=== PATIENT | female | born 1990 | race Caucasian/White ===

== ENCOUNTER 2016-02-17 19:12 | Emergency (ER) | payer OTHER ==
[2016-02-17 19:49] LABS: BASO% 0.2 % (0.0-0.8); EOS# 0.08 X1000 (0.0-0.7); EOS% 0.6 % (0.0-10.0); HEMATOCRIT 32.6 % (37.0-47.0); HEMOGLOBIN 11.3 g/dL (12.0-16.0); IMM GRAN# 0.53 X1000 (0.0-0.04); LYMPH# 1.41 X1000 (1.2-3.4); LYMPH% 10.7 % (20.5-51.1); MANUAL DIFF NEEDED? NO; MCH 31.6 PG (27-31); MCHC 34.7 g/dL (33-37); MCV 91.1 FL (81-99); MONO# 0.59 X1000 (0.11-0.59); MONO% 4.5 % (1.7-9.3); MPV 9.7 FL (7.4-10.4); PLT 251 X1000 (130-400); RBC 3.58 XMIL (4.2-5.4)
[2016-02-17 20:03] LABS: AGAP 14; ALBUMIN 3.6 g/dL (3.5-5.0); ALKALINE PHOSPHATASE 89 U/L (32-104); AMYLASE 71 U/L (20-200); BUN 5 mg/dL (8-22); CALCIUM 8.9 mg/dL (8.8-10.2); CHLORIDE 100 mmol/L (98-107); COSMO 272; GOT 17 U/L (10-30); GPT 15 U/L (10-36); LIPASE 25 U/L (13-60); SODIUM 137 mmol/L (136-145); TCO2 23 mmol/L (25-35); TOTAL PROTEIN 6.8 g/dL (6.3-8.3)
[2016-02-17] MEDS ORDERED: NS 1,000 ML IV ONE (20:52)
[2016-02-17 20:53] LABS: URINE CULTURE NEEDED? NO; URINE MICRO REVIEW NEEDED? NO; URINE SOURCE CLEAN CATCH
[2016-02-17 21:04] LABS: UR EPITHELIAL CELLS <10 /HPF (<10); URINE BACTERIA 1+ /HPF; URINE RBC <10 /HPF (<10); URINE WBC <10 /HPF (<10)
[2016-02-17 21:06] LABS: BILIRUBIN URINE NEGATIVE (NEGATIVE); BLOOD URINE NEGATIVE (NEGATIVE); COLOR YELLOW; GLUCOSE URINE NEGATIVE (NEGATIVE); LEUKOCYTES URINE NEGATIVE (NEGATIVE); NITRITE URINE NEGATIVE (NEGATIVE); PH URINE 6.5; PROTEIN URINE TRACE mg/dL (NEGATIVE); SP GRAVITY URINE 1.023; TURBIDITY URINE CLEAR (CLEAR); UROBILINOGEN URINE NORMAL (NORMAL)
[2016-02-17] MEDS ORDERED: KLOR-CON PO ONE (22:53)
--- NOTE | 2016-02-17 23:01 | PROVIDER DOCUMENTATION ---
HPI-Female /OB/Breast - General Chief Complaint: Abdominal Pain Stated Complaint: ABD PAIN X 3 DAYS, BACK PAIN, N/D Time Seen by Provider: 02/17/16 20:40 Source: reports: patient Allergies/Adverse Reactions: Patient Allergies Allergy/AdvReac Type Severity Reaction Status Date / Time No Known Allergies Allergy Verified 02/17/16 19:27 Home Medications: Pnv Comb.no58/Iron Bisgly/FA [ Capsule] 1 cap PO DAILY 10/16/15 - History of Present Illness-Female /OB Nature of Presenting Problem: This pt, who is approximately 28 weeks , presents today complaining of intermittent abdominal pain from an umbilical hernia and bilateral lower back pains X 3 days. She denies any n/v, fever, chills, dysuria or vaginal discharge/bleeding. No other issues or complaints. Does patient report she is ?: Yes Location of complaint: reports: periumbilical, generalized flank Quality of Pain: reports: aching Severity in ED: reports: mild Onset/Duration: reports: 3 days ago Timing: reports: intermittent Vaginal Symptoms: reports: no symptoms Vaginal Bleeding Amount: None Urinary Symptoms: reports: low back pain Related Symptoms: reports: abdominal pain (umbilical) Sexual intercourse history: reports: Less Than 2 Months Ago, Single Partner Contraception: reports: none Similar Symptoms Previously?: Yes Recently seen or treated by another doctor?: Yes Review of Systems - Adult - REVIEW OF SYSTEMS - ADULT Constitutional: reports: no symptoms reported. denies: chills, fever Eyes: reports: no symptoms reported. denies: discharge, dry eyes Ears, Nose, Mouth & Throat: reports: no symptoms reported. denies: ear discharge, ear pain Cardiovascular: reports: no symptoms reported. denies: chest pain, edema Respiratory: reports: no symptoms reported. denies: chronic cough, cough Gastrointestinal: reports: see HPI, abdominal pain. denies: frequent heartburn , nausea Genitourinary: reports: see HPI, flank pain. denies: dysuria, discharge Musculoskeletal: reports: back pain. denies: bone pain, frequent leg cramps, joint swelling Integumentary: reports: no symptoms reported. denies: hives, hair loss Neurological: reports: no symptoms reported. denies: ataxia, dizziness/vertigo Psychiatric: reports: no symptoms reported. denies: anxiety, anti-depressant use Endocrine: reports: no symptoms reported Hematologic/Lymphatic: reports: no symptoms reported Allergic/Immunologic: reports: no symptoms reported All Other Systems: Reviewed and Negative Past History - Adult - PAST MEDICAL HISTORY-ADULT Review of Records: reports: Old Records Reviewed, Nursing Assessment Review, Medications Reviewed, Social history reviewed & non-contributory. Major Childhood Illnesses: reports: denies history Cardiovascular: reports: denies history Respiratory: reports: denies history Gastrointestinal: reports: denies history Obstetrical/Gynecological: reports: denies history Genitourinary: reports: denies history Musculoskeletal: reports: denies history Neurological: reports: denies history Endocrine/Immune: reports: denies history Other Conditions: reports: denies history Physical Exam-General - PHYSICAL EXAM-ADULT Initial Vital Signs Reviewed: Yes - CONSTITUTIONAL General Appearance: appears well, alert, no apparent distress. negative: lethargic, slow to respond - EYES Eyes: PERRL/EOMI, pink conjunctivae - HEAD, EARS, NOSE, MOUTH & THROAT HENMT: normocephalic/atraumatic, moist mucous membranes, normal ENT inspection - NECK Neck: non-tender, full range of motion, normal inspection - RESPIRATORY Respiratory: chest non-tender, lungs clear, normal breath sounds, no pleuratic chest pain, no respiratory distress, no accessory muscle use. negative: respiratory distress, decreased breath sounds, accessory muscle use - CARDIOVASCULAR Cardiovascular: normal peripheral pulses, regular rate, rhythm, no edema. negative: bradycardia, tachycardia - GASTROINTESTINAL (ABDOMEN) Abdominal Exam: normal bowel sounds, non tender, soft, no organomegaly, no pulsatile mass. negative: abdominal bruit, abnormal bowel sounds, distended, guarding, rigid, rebound, tenderness, hernia, mass - LYMPHATIC Lymphatic: no adenopathy - MUSCULOSKELETAL Back Exam: normal inspection, no CVA tenderness, no vertebral tenderness. negative: CVA tenderness Extremity: normal range of motion, non-tender, normal gait - SKIN Integumentary: normal color, normal turgor, warm/dry - NEUROLOGIC Neurologic: grossly normal, no motor/sensory deficits. negative: facial droop, focal weakness, motor weakness, sensory deficit - PSYCHIATRIC Psych/Mental Status: normal mood/affect, normal thought content, normal thought process, oriented x 3 Progress - PLAN OF CARE/RESULTS Progress/Plan/Lab Results: Laboratory Tests 0102/17/16 02/17/16 19:22 19:22 20:00 WBC 13.19 H RBC 3.58 L Hgb 11.3 L Hct 32.6 L MCV 91.1 MCH 31.6 H MCHC 34.7 RDW Std Deviation 13.9 Plt Count 251 MPV 9.7 Immature Gran % (Auto) 4.0 H Neut % (Auto) 80.0 H Lymph % (Auto) 10.7 L [facility] % (Auto) 4.5 Eos % (Auto) 0.6 Baso % (Auto) 0.2 Immature Gran # (Auto) 0.53 H Neut # (Auto) 10.55 H Lymph # (Auto) 1.41 [facility] # (Auto) 0.59 Eos # (Auto) 0.08 Baso # (Auto) 0.03 Sodium 137 Potassium 3.0 L Chloride 100 Carbon Dioxide 23 L Anion Gap 14 BUN 5 L Creatinine 0.5 Estimated GFR/1.73 m2 > 60 BUN/Creatinine Ratio 10 Glucose 119 H Calculated Osmolality 272 Calcium 8.9 Total Bilirubin 0.30 AST 17 ALT 15 Alkaline Phosphatase 89 Total Protein 6.8 Albumin 3.6 Globulin 3.2 Albumin/Globulin Ratio 1.1 Amylase 71 Lipase 25 Urine Source CLEAN CATCH Urine Color YELLOW Urine Turbidity CLEAR Urine pH 6.5 Ur Specific [place] 1.023 Urine Protein TRACE A Ur Glucose (Stick) NEGATIVE Ur Ketones (Stick) 80 A Urine Blood NEGATIVE Urine Nitrite NEGATIVE Urine Bilirubin NEGATIVE Urobilinogen Dipstick NORMAL Urine Leukocytes NEGATIVE Urine WBC (Auto) <10 Urine RBC (Auto) <10 U Epithel Cells (Auto) <10 Urine Bacteria (Auto) 1+ Orders Category Date Time Status ED: Urine Bedside ORDERED Care 02/17/16 19:19 Inactive Saline Loc NOW Care 02/17/16 19:19 Active US ABDOMEN-COMPLETE [US] Stat Exams 02/17/16 20:52 Taken US OBS COMPLETE > 14 WKS [US] Stat Exams 02/17/16 20:52 Taken AMYLASE [CHEM] Stat Lab 02/17/16 19:22 Completed CBC WITH ELECTRONIC DIFF [HEME] Stat Lab 02/17/16 19:22 Completed COMPREHENSIVE METABOLIC PANEL [CHEM] Stat Lab 02/17/16 19:22 Completed LIPASE [CHEM] Stat Lab 02/17/16 19:22 Completed URINALYSIS W/POSS RFLX CULT [URINALYSIS] Stat Lab 02/17/16 20:00 Completed 0.9% Sodium Chloride Inj [Ns] 1,000 ml Med 02/17/16 20:52 Discontinued IV 999 mls/hr Potassium Chloride E.r. [Klor-Con] Med 02/17/16 22:53 Discontinued 20 meq PO NOW ONE Vital Signs Temp Pulse Resp BP Pulse Ox 02/17/16 19:17 97.5 F L 100 H 18 131/67 100 No Known Allergies Allergy (Verified 02/17/16 19:27) Pnv Comb.no58/Iron Bisgly/FA [ Capsule] 1 cap PO DAILY 10/16/15 Laboratory 02/17/16 02/17/16 02/17/16 20:00 19:22 19:22 WBC 13.19 H RBC 3.58 L Hgb 11.3 L Hct 32.6 L MCV 91.1 MCH 31.6 H MCHC 34.7 RDW Std Deviation 13.9 Plt Count 251 MPV 9.7 Immature Gran % (Auto) 4.0 H Neut % (Auto) 80.0 H Lymph % (Auto) 10.7 L [facility] % (Auto) 4.5 Eos % (Auto) 0.6 Baso % (Auto) 0.2 Immature Gran # (Auto) 0.53 H Neut # (Auto) 10.55 H Lymph # (Auto) 1.41 [facility] # (Auto) 0.59 Eos # (Auto) 0.08 Baso # (Auto) 0.03 Sodium 137 Potassium 3.0 L Chloride 100 Carbon Dioxide 23 L Anion Gap 14 BUN 5 L Creatinine 0.5 Estimated GFR/1.73 m2 > 60 BUN/Creatinine Ratio 10 Glucose 119 H Calculated Osmolality 272 Calcium 8.9 Total Bilirubin 0.30 AST 17 ALT 15 Alkaline Phosphatase 89 Total Protein 6.8 Albumin 3.6 Globulin 3.2 Albumin/Globulin Ratio 1.1 Amylase 71 Lipase 25 Urine Source CLEAN CATCH Urine Color YELLOW Urine Turbidity CLEAR Urine pH 6.5 Ur Specific [place] 1.023 Urine Protein TRACE A Ur Glucose (Stick) NEGATIVE Ur Ketones (Stick) 80 A Urine Blood NEGATIVE Urine Nitrite NEGATIVE Urine Bilirubin NEGATIVE Urobilinogen Dipstick NORMAL Urine Leukocytes NEGATIVE Urine WBC (Auto) <10 Urine RBC (Auto) <10 U Epithel Cells (Auto) <10 Urine Bacteria (Auto) 1+ Discussed results and imaging c pt. 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 She is currently in no pain and feels very well. Will d/c home. - ULTRASOUND (By Radiology) 1 US Study: Abdomen, Pelvic US Results: 31w2d IUP without abnormality; hydronephrosis associated c Departure - Departure Time of Disposition Order: 23:00 DIAGNOSIS: hydronephrosis in in third trimester, antepartum condition Qualifiers: Weeks of gestation: 31 weeks Qualified Code(s): Z3A.31 - 31 weeks gestation of Disposition: HOME 01 Certified Medical Emergency: Emergent Condition: Good Additional Instructions: As we discussed, follow up with your LINING MACHINE OPERATOR next week. Please return to the ER for any new or worsening symptoms. ED Follow Up Instructions: You have been treated by a care provider in the Emergency Department. These instructions are being provided to you so you can have an understanding of how to care for yourself upon discharge. Upon discharge from the Emergency Department, you are responsible for making arrangements for follow-up care by a physician of your choice. Take all prescribed medications as directed. Return to the Emergency Department immediately for any new or worsening symptoms. You may call the Physician Referral phone number at [phone] to obtain a list of Physicians who are taking new patients. Referrals: Olegario Rosa MD [Primary Care Provider] - Attestation - Physician/ Mid-level Attestation Patient care was provided by Mid-level provider (CARDIAC CATHETERIZATION TECHNOLOGIST/PA):: Yes Mid-level provider:: Sammy Martin Mid-level documentation review:: The Mid-level provider documentation, treatment plan and medical decision making was reviewed by the physician who agrees with all treatment and medical decision making by the MLP.
[2016-02-17 23:25] VITALS: BP 111/70
--- NOTE | 2016-02-18 09:47 | Diag Imaging Result Document ---
PROCEDURE NAME: US ABDOMEN-COMPLETE - 02/17/2016 COMPLETE ABDOMINAL ULTRASOUND: COMPARISON: None available. FINDINGS: The gallbladder appears normal with no stones, wall thickening, or pericholecystic fluid. The common bile duct is normal in diameter. Sonographic Berry's sign was reported to be negative. The liver, spleen, visualized pancreas, aorta, and IVC are grossly unremarkable as imaged. The distal aorta is obscured. There is minimal prominence of the renal collecting systems bilaterally. This is often physiologic in patients with late term pregnancies such as this. The kidneys are unremarkable, otherwise. IMPRESSION: Minimal prominence of the renal collecting systems bilaterally that is probably related to the patient's . Otherwise, unremarkable.
--- NOTE | 2016-02-18 09:56 | Diag Imaging Result Document ---
PROCEDURE NAME: US OBS COMPLETE > 14 WKS - 02/17/2016 OBSTETRIC ULTRASOUND: COMPARISON: None available. FINDINGS: There is a single viable intrauterine gestation. The placenta is located anteriorly, and the fetus is in cephalic position. No gross or placental anomalies are appreciated. Specifically, a 4-chamber heart, umbilical cord, bladder and kidneys, face and orbits, stomach, spine, and diaphragm are identified and are grossly unremarkable. Measured heart rate is 156 beats per minute. The estimated weight is 3 pounds 15 ounces +/-11 ounces. The gestational age by ultrasound is 31 weeks 2 days. IMPRESSION: Single viable intrauterine gestation with no gross anomalies appreciated.
== END 2016-02-17 23:35 | disposition home or self-care (01) ==
LOC: ED 19:12
DX: O26.893 Other specified pregnancy related conditions, third trimester (principal); Z3A.31 31 weeks gestation of pregnancy; N13.30 Unspecified hydronephrosis; R10.9 Unspecified abdominal pain; M54.9 Dorsalgia, unspecified
CPT/HCPCS: 36415; 76700; 76805; 80053; 81001; 82150; 83690; 85025; J7030